=== PATIENT | male | born 1965 | race American Indian/Alaskan Native ===

== ENCOUNTER 2017-05-10 15:08 | Inpatient (IN) | payer BC, OTHER ==
--- NOTE | 2017-05-10 15:41 | ED PDOC ---
Arrival/HPI - General Chief Complaint: Lower Extremity Problem/Injury Time Seen by Provider: 05/10/17 15:33 Historian: Patient - History of Present Illness Narrative History of Present Illness (Text): 05/10/17 15:40 A 51 year old male, whose past medical history includes gout and hypertension, presents to the emergency department complaining of left foot pain. Patient notes radiating pain up his left leg. He reports a history of gout but states his current pain feels different. Patient notes taking his prescriptions of allopurinol, colchicine and celebrex, with no relief. Patient notes non-bloody diarrhea but denies any trauma, fever, chills, nausea, vomiting, abdominal pain , chest pain, shortness of breath or any other complaints. PMD: Dr. Gerber Time/Duration: Other Symptom Course: Unchanged Quality: Other Context: Home, Work Past Medical History - Provider Review Nursing Documentation Reviewed: Yes - Cardiac Hx Cardiac Disorders: Yes Hx Hypertension: Yes - Pulmonary Hx Respiratory Disorders: No - Neurological Hx Neurological Disorder: No - HEENT Hx HEENT Disorder: No - Renal Hx Renal Disorder: No - Endocrine/Metabolic Hx Endocrine Disorders: No - Hematological/Oncological Hx Blood Disorders: No - Integumentary Hx Dermatological Disorder: No - Musculoskeletal/Rheumatological Hx Musculoskeletal Disorders: Yes Hx Gout: Yes - Gastrointestinal Hx Gastrointestinal Disorders: No - Genitourinary/Gynecological Hx Genitourinary Disorders: No - Psychiatric Hx Psychophysiologic Disorder: No Hx Substance Use: No - Suicidal Assessment Feels Threatened In Home Enviroment: No Family/Social History - Physician Review Nursing Documentation Reviewed: Yes Family/Social History: No Known Family HX Smoking Status: Never Smoked Hx Alcohol Use: Yes (socially) Hx Substance Use: No Hx Substance Use Treatment: No Allergies/Home Meds Allergies/Adverse Reactions: Allergies No Known Allergies Allergy (Verified 05/10/17 15:20) Home Medications: Home Meds Medication Instructions Recorded Confirmed Allopurinol 100 mg PO DAILY 04/06/12 05/10/17 Celecoxib [Celebrex] 1 tab PO PRN PRN 05/10/17 Colchicine [Colcrys] 1 tab PO PRN PRN 05/10/17 05/10/17 Review of Systems - Physician Review All systems were reviewed & negative as marked: Yes - Review of Systems Constitutional: absent: Fevers, Night Sweats Respiratory: absent: SOB Cardiovascular: absent: Chest Pain Gastrointestinal: Diarrhea. absent: Abdominal Pain, Nausea, Vomiting Musculoskeletal: Other (Left foot pain, radiating up towards left leg) Physical Exam Vital Signs Reviewed: Yes Vital Signs Temp Pulse Resp BP Pulse Ox 05/10/17 15:22 98.9 F 98 H 17 153/94 H 95 Temperature: Afebrile Blood Pressure: Hypertensive Pulse: Tachycardic Respiratory Rate: Normal Appearance: Positive for: Well-Appearing, Non-Toxic, Comfortable Pain Distress: None Mental Status: Positive for: Alert and Oriented X 3 - Systems Exam Head: Present: Atraumatic, Normocephalic Pupils: Present: PERRL Extroacular Muscles: Present: EOMI Conjunctiva: Present: Normal Lower Extremity: Present: NORMAL PULSES, Normal ROM, Tenderness (to dorsal aspect of left foot. Minimal ankle tenderness.), Neurovascularly Intact, Other ( No tenderness to MTP joint). No: Edema, CALF TENDERNESS, Swelling, Erythema, Deformity, Temperature Abnormalties Neurological: Present: GCS=15, CN II-XII Intact, Speech Normal Skin: Present: Warm, Dry, Normal Color. No: Rashes Psychiatric: Present: Alert, Oriented x 3, Normal Insight, Normal Concentration Medical Decision Making ED Course and Treatment: 05/10/17 15:40 Impression: A 51 year old male with left foot pain. Patient notes diarrhea. Plan: -- Left foot xray -- Labs -- Toradol -- Reassess and disposition Progress Notes: - Lab Interpretations Lab Results: 05/10/17 16:10 05/10/17 16:10 Lab Results 05/10/17 16:10: Sodium 141, Potassium 4.1, Chloride 97 L, Carbon Dioxide 24, Anion Gap 24 H, BUN 6 L, Creatinine 0.8, Est GFR ( Amer) > 60, Est GFR ( Non-Af Amer) > 60, Random Glucose 83, Uric Acid 7.4, Calcium 9.3, Total Bilirubin 2.2 H, AST 66 H, ALT 63 H, Alkaline Phosphatase 85, Total Protein 8.1 , Albumin 4.4, Globulin 3.7, Albumin/Globulin Ratio 1.2 05/10/17 16:10: WBC 9.3, RBC 4.21, Hgb 12.7 L, Hct 38.5 L, MCV 91.4, MCH 30.2, MCHC 33.0, RDW 14.3, Plt Count 197, MPV 8.8, Gran % 73.5 H, Lymph % (Auto) 20.3 L, [place] % (Auto) 5.5, Eos % (Auto) 0.5 L, Baso % (Auto) 0.2, Gran # 6.83 H, Lymph # 1.9, [place] # 0.5, Eos # 0.1, Baso # 0.02, ESR Pending I have reviewed the lab results: Yes - RAD Interpretation Radiology Orders: 05/10/17 15:40 FOOT LEFT 3 VIEWS ROUTINE [RAD] Stat - Medication Orders Current Medication Orders: Discontinued Medications Ketorolac Tromethamine (Toradol) 60 mg IM STAT STA Stop: 05/10/17 15:42 Last Admin: 05/10/17 16:06 Dose: 60 mg MAR Pain Assessment Document 05/10/17 16:06 EQ (Rec: 05/10/17 16:06 EQ [id number]) Pain Reassessment Is this a pain reassessment? No Sleep Is patient sleeping during reassessment? No Presence of Pain Presence of Pain Yes IM Administration Charges Document 05/10/17 16:06 EQ (Rec: 05/10/17 16:06 EQ [id number]) Charges for Administration # of IM Administrations 1 - Scribe Statement The provider has reviewed the documentation as recorded by the Sosa Araujo Provider Scribe Attestation: All medical record entries made by the Scribe were at my direction and personally dictated by me. I have reviewed the chart and agree that the record accurately reflects my personal performance of the history, physical exam, medical decision making, and the department course for this patient. I have also personally directed, reviewed, and agree with the discharge instructions and disposition. Disposition/Present on Arrival - Present on Arrival Any Indicators Present on Arrival: No History of DVT/PE: No History of Uncontrolled Diabetes: No Urinary Catheter: No History of Decub. Ulcer: No History Surgical Site Infection Following: None - Disposition Have Diagnosis and Disposition been Completed?: Yes Diagnosis: Gout of left foot Disposition: HOSPITALIZED Disposition Time: 17:10 Patient Plan: Admission Condition: FAIR Forms: [employer] ([place])
[2017-05-10 16:33] LABS: BASO # 0.02 K/mm3 (0.0-2.0); BASO % 0.2 % (0.0-3.0); EOS # 0.1 (0.0-0.7); EOS % 0.5 % (1.5-5.0); GRAN # 6.83 (1.4-6.5); GRAN % 73.5 % (50.0-68.0); HEMOGLOBIN 12.7 g/dL (14.0-18.0); LYMPH # 1.9 (1.2-3.4); LYMPH % 20.3 % (22.0-35.0); MEAN CELL VOLUME 91.4 fl (80.0-105.0); MEAN CORPUSCULAR HEMOGLOBIN 30.2 pg (25.0-35.0); MEAN PLATELET VOLUME 8.8 fl (7.0-11.0); MONO # 0.5 (0.1-0.6); MONO % 5.5 % (1.0-6.0); RBC 4.21 10^6/uL (3.5-6.1); RED CELL DISTRIBUTION WIDTH 14.3 % (11.5-14.5); WHITE BLOOD COUNT 9.3 10^3/ul (4.5-11.0)
[2017-05-10 16:39] LABS: ALB/GLOB RATIO 1.2 (1.1-1.8); ALBUMIN 4.4 g/dL (3.0-4.8); ALT/SGPT 63 U/L (7-56); AST/SGOT 66 U/L (17-59); BLOOD UREA NITROGEN 6 mg/dL (7-21); CALCIUM 9.3 mg/dL (8.4-10.5); GFR AFRICAN-AMERICAN > 60; GFR NON-AFRICAN AMERICAN > 60; URIC ACID 7.4 mg/dL (3.5-8.5)
--- NOTE | 2017-05-10 18:00 | RAD ---
PROCEDURE: Left Foot Radiographs. HISTORY: metatarsal pain COMPARISON: None. FINDINGS: BONES: No fractures identified or destructive bony lesion. JOINTS: Marked degenerative joint disease seen comprised of joint space narrowing and cortical sclerosis as well as limited osteophyte development throughout the joints of the left foot the predominantly at the hindfoot and digital joints as well as the 1st metatarsophalangeal joint. Borderline hallux valgus deformity. SOFT TISSUES: A large plantar calcaneal spur is appreciated. OTHER FINDINGS: None. IMPRESSION: No acute fracture or dislocation. Degenerative changes seen diffusely for predominantly affect the forefoot and hindfoot joints as per above. Large plantar calcaneal spur identified.
[2017-05-10] MEDS ORDERED: Oxycodone/Acetaminophen 5/325 mg Tab PO PRN (19:59)
[2017-05-10] MEDS: MethylPREDNISolone 40 mg Vial IV SCH (21:29)
[2017-05-10 22:43] VITALS: BMI 50.2
[2017-05-10] MEDS ORDERED: Influenza Vaccine 60 mcg/0.5 mL SYR (4YR UP) IM ONE (22:43)
[2017-05-10] MEDS ORDERED: Pneumococcal 23-Valent Vaccine IM ONE (22:43)
--- NOTE | 2017-05-11 01:20 | HP ---
HISTORY OF PRESENT ILLNESS: The patient is 51 years old, came to the emergency room because of increasing pain, swelling, and redness of left foot. The patient states that he is unable to walk. He cannot even walk few steps. He has been taking colchicine and allopurinol at home. He also has Celebrex at home, but states that it was not helping him. Because of above-mentioned complaint, he came to emergency room for further evaluation. He denies any fever or chills, complains of persistent pain, also complains of some diarrhea since he started taking more colchicine. PAST MEDICAL HISTORY: He has significant past medical history for: 1. Hypertension. 2. Morbid obesity. 3. Sleep apnea. 4. Hyperlipidemia. 5. Gout. ALLERGIES: HE IS NOT ALLERGIC TO ANY MEDICATIONS. MEDICATIONS AT HOME: He is on Diovan 320 mg daily, allopurinol 100 mg daily, and Celebrex 200 daily. SOCIAL HISTORY: He is single. He denies smoking, but does drink. PHYSICAL EXAMINATION: GENERAL: He is awake, alert, oriented, and able to communicate. VITAL SIGNS: He is afebrile, pulse 85, respirations 16, and blood pressure 145/90. LUNGS: Bilateral fair airflow. No rhonchi or crackle. HEART: S1 and S2 audible. ABDOMEN: Soft and nontender. No rebound. Obese. No hepatosplenomegaly. NEUROLOGIC: The patient is awake, alert, oriented, and able to communicate. LABORATORY DATA: WBC is 9.3, hemoglobin 12.7, hematocrit 38.5, and platelet 197,000. Chemistry: Sodium 141, potassium 4.1, chloride 97, CO2 24, BUN 6, creatinine 0.8, and blood sugar of 83. LFTs are within normal limits. Total bilirubin 2.2. AST 66, ALT 63. ASSESSMENT: 1. Left foot gouty arthritis, intractable pain. 2. Hypertension. 3. Hyperlipemia. PLAN: The patient will be admitted. We will give him IV steroids, start him on colchicine, gave him analgesic, and we will reevaluate this patient. Cheyanne Gerber MD
[2017-05-11] MEDS: MethylPREDNISolone 40 mg Vial IV SCH ×3 (05:38→22:25)
[2017-05-11] MEDS: Pantoprazole 40 mg EC Tab PO SCH (05:39)
[2017-05-11 17:48] VITALS: RESP 20
--- NOTE | 2017-05-11 20:48 | PN ---
DATE: SUBJECTIVE: The patient is a 51-year-old, who was admitted with foot swelling, redness, and difficulty walking, seen and examined, doing better. PHYSICAL EXAMINATION VITAL SIGNS: He is afebrile, pulse 70, respirations 20 and blood pressure 129/72. LUNGS: Bilateral good airflow. No rhonchi or crackle. HEART: S1 and S2 audible. ABDOMEN: Soft and nontender. No rebound. No guarding. NEUROLOGIC: The patient is awake, alert, oriented. Able to communicate and ambulatory. His erythema has significantly improved. ASSESSMENT AND PLAN: 1. Acute gouty arthritis with foot erythema. 2. Hypertension. 3. Morbid obesity. 4. Hyperlipidemia. PLAN: I will cut down colchicine to b.i.d. Continue on valsartan. He is on Lasix 40 mg IV. We will continue that. Cut down his prednisone to 30 mg q. 12. We will reevaluate in a.m. If he remain stable, we will switch to p.o. medication and discharge him in a.m. Cheyanne Gerber MD
[2017-05-12 08:01] VITALS: PULSE 80; TEMP 98.6; O2SAT 97
[2017-05-12] MEDS: Pantoprazole 40 mg EC Tab PO SCH (08:09)
[2017-05-12] MEDS: MethylPREDNISolone 40 mg Vial IV SCH (10:00)
[2017-05-12 10:06] VITALS: BP 130/82
--- NOTE | 2017-05-13 01:06 | DS ---
HISTORY OF PRESENT ILLNESS: The patient is a 51-year-old, seen and examined, and doing well. Left foot swelling has almost gone, able to ambulate. PHYSICAL EXAMINATION: VITAL SIGNS: He is afebrile, pulse 80, respirations 20, and blood pressure 130/82. LUNGS: Bilateral fair airflow. No rhonchi or crackle. HEART: S1 and S2 audible. ABDOMEN: Soft, obese, and nontender. No rebound. No guarding. EXTREMITIES: No leg edema. Left foot erythema has improved. NEUROLOGIC: The patient is awake, alert, oriented, and able to communicate. ASSESSMENT: 1. Disabling gouty arthritis, the patient responded very well to IV steroid, colchicine, analgesic, and nonsteroidal antiinflammatory drugs. 2. Hypertension. 3. Morbid obesity. 4. Hyperlipidemia. PLAN: The patient is going to be discharged home on colchicine twice a day for 3 days and daily until 2 to 3 weeks, continue allopurinol, Celebrex 200 daily for a week, and the patient will follow up in office in a week or two. Cheyanne Gerber MD
== END 2017-05-12 12:42 | disposition home or self-care (01) | DRG 554 ==
LOC: ED 15:08 → OBSVTOIN 17:02 → INTOOBSV 17:02 → ERH 17:02 → 5RSO 18:44
PROVIDERS: ADMIT Internal Medicine; ATTEND Internal Medicine
DX: M10.072 Idiopathic gout, left ankle and foot (principal); E66.01 Morbid (severe) obesity due to excess calories; Z68.43 Body mass index [BMI] 50.0-59.9, adult; I10 Essential (primary) hypertension; E78.5 Hyperlipidemia, unspecified; G47.30 Sleep apnea, unspecified

== ENCOUNTER 2017-05-29 13:28 | Emergency (ER) | payer BC ==
[2017-05-29 14:42] VITALS: BMI 51.7
[2017-05-29 14:46] VITALS: RESP 18
--- NOTE | 2017-05-29 15:25 | ED PDOC ---
Arrival/HPI - General Chief Complaint: Lower Extremity Problem/Injury Time Seen by Provider: 05/29/17 14:54 Historian: Patient - History of Present Illness Narrative History of Present Illness (Text): 05/29/17 15:20 51yo morbidly obese male with PMHx of hypertension and gout present with pain to his right ankle/foot x 2days. Patient states pain is typical of his gouty attacks pain. States pain started after he was exposed to cold at work yesterday. Notes that he started took Allopurinol and colchicine yesterday and today. Describes pain as throbbing. Denies trauma ,fever, chills, swelling, calf pain, redness, chest pain, SOB, diaphoresis, any other complaint. Past Medical History - Provider Review Nursing Documentation Reviewed: Yes - Infectious Disease Hx of Infectious Diseases: None - Cardiac Hx Cardiac Disorders: Yes Hx Hypertension: Yes - Pulmonary Hx Respiratory Disorders: No - Neurological Hx Neurological Disorder: No - HEENT Hx HEENT Disorder: No - Renal Hx Renal Disorder: No - Endocrine/Metabolic Hx Endocrine Disorders: No - Hematological/Oncological Hx Blood Disorders: No - Integumentary Hx Dermatological Disorder: No - Musculoskeletal/Rheumatological Hx Musculoskeletal Disorders: Yes Hx Falls: No Hx Gout: Yes - Gastrointestinal Hx Gastrointestinal Disorders: No - Genitourinary/Gynecological Hx Genitourinary Disorders: No - Psychiatric Hx Psychophysiologic Disorder: No Hx Substance Use: No - Anesthesia Hx Anesthesia: No - Suicidal Assessment Feels Threatened In Home Enviroment: No Family/Social History - Physician Review Nursing Documentation Reviewed: Yes Family/Social History: Unknown Family HX Smoking Status: Never Smoked Hx Alcohol Use: Yes (ETOH SOCIALLY) Hx Substance Use: No Hx Substance Use Treatment: No Allergies/Home Meds Allergies/Adverse Reactions: Allergies No Known Allergies Allergy (Verified 05/10/17 20:26) Home Medications: Home Meds Medication Instructions Recorded Confirmed Allopurinol [Zyloprim] 100 mg PO DAILY 05/10/17 05/29/17 Celecoxib [Celebrex] 1 tab PO PRN PRN 05/10/17 05/29/17 Colchicine [Colcrys] 1 tab PO PRN PRN 05/10/17 05/29/17 Valsartan [Diovan] 1 tab PO DAILY 05/29/17 05/29/17 Review of Systems - Physician Review All systems were reviewed & negative as marked: Yes - Review of Systems Constitutional: Normal Eyes: Normal ENT: Normal Respiratory: Normal Cardiovascular: Normal Gastrointestinal: Normal Genitourinary Male: Normal Musculoskeletal: Arthralgias (Right ankle pain) Skin: Normal Neurological: Normal Endocrine: Normal Hemo/Lymphatic: Normal Psychiatric: Normal Physical Exam Vital Signs Reviewed: Yes Vital Signs Temp Pulse Resp BP Pulse Ox 05/29/17 17:40 98 F 80 18 119/77 98 05/29/17 14:45 97.8 F 86 18 121/80 95 Temperature: Afebrile Blood Pressure: Normal Pulse: Regular Respiratory Rate: Normal Appearance: Positive for: Well-Appearing, Non-Toxic, Comfortable Pain Distress: None Mental Status: Positive for: Alert and Oriented X 3 - Systems Exam Head: Present: Atraumatic, Normocephalic Pupils: Present: PERRL Extroacular Muscles: Present: EOMI Conjunctiva: Present: Normal Mouth: Present: Moist Mucous Membranes Neck: Present: Normal Range of Motion Respiratory/Chest: Present: Clear to Auscultation, Good Air Exchange. No: Respiratory Distress, Accessory Muscle Use Cardiovascular: Present: Regular Rate and Rhythm, Normal S1, S2. No: Murmurs Abdomen: Present: Normal Bowel Sounds. No: Tenderness, Distention, Peritoneal Signs Back: Present: Normal Inspection Upper Extremity: Present: Normal Inspection. No: Cyanosis, Edema Lower Extremity: Present: NORMAL PULSES, Tenderness (Right diffuse ankle), Neurovascularly Intact. No: Edema, CALF TENDERNESS, Swelling, Erythema Neurological: Present: GCS=15, CN II-XII Intact, Speech Normal Skin: Present: Warm, Dry, Normal Color. No: Rashes Psychiatric: Present: Alert, Oriented x 3, Normal Insight, Normal Concentration Medical Decision Making ED Course and Treatment: 05/30/17 02:21 PT presented for stated history. He was treated with Toradol and Decadron in ED. On re evaluation he notes that his pain improved. He states he ran out of his medications and was DC home with Colchicine, Percocet and allopurinol. He was referred to his PMD. - Medication Orders Current Medication Orders: Discontinued Medications Dexamethasone (Decadron Inj) 10 mg IVP STAT STA Stop: 05/29/17 15:11 Last Admin: 05/29/17 16:14 Dose: 10 mg IVP Administration Document 05/29/17 16:14 VINEET (Rec: 05/29/17 16:15 [email or web address]) Charges for Administration # of IVP Administrations 1 Ketorolac Tromethamine (Toradol) 30 mg IVP STAT STA Stop: 05/29/17 15:11 Last Admin: 05/29/17 16:14 Dose: 30 mg MAR Pain Assessment Document 05/29/17 16:14 SZA (Rec: 05/29/17 16:14 [email or web address]) Pain Reassessment Is this a pain reassessment? No Sleep Is patient sleeping during reassessment? No Presence of Pain Presence of Pain Yes IVP Administration Document 05/29/17 16:14 VINEET (Rec: 05/29/17 16:14 [email or web address]) Charges for Administration # of IVP Administrations 1 Re-Assess: MAR Pain Assessment Document 05/29/17 17:14 VINEET (Rec: 05/29/17 18:35 [facility] [id number]) Pain Reassessment Is this a pain reassessment? Yes Sleep Is patient sleeping during reassessment? No Presence of Pain Presence of Pain Yes Pain Scale Used Pain Scale Used Numeric Description Intensity of Pain at present 2 Disposition/Present on Arrival - Present on Arrival Any Indicators Present on Arrival: No History of DVT/PE: No History of Uncontrolled Diabetes: No Urinary Catheter: No History of Decub. Ulcer: No History Surgical Site Infection Following: None - Disposition Have Diagnosis and Disposition been Completed?: Yes Diagnosis: Gout of right foot Disposition: HOME/ ROUTINE Disposition Time: 17:50 Patient Plan: Discharge Condition: STABLE Discharge Instructions (ExitCare): Gout (ED) Additional Instructions: Follow up with your Doctor/Social Work Administrator Return to ED for any new or worsening symptoms Prescriptions: Allopurinol [Zyloprim] 100 mg PO DAILY #15 tab Colchicine [Colcrys] 0.6 mg PO BID #6 tab oxyCODONE/Acetaminophen [Percocet 5/325 mg Tab] 1 ea PO Q6 #9 tab Referrals: Cheyanne Gerber MD [Primary Care Provider] - Follow up with primary Yessy Etienne DPM [Staff Provider] - Follow up with primary Forms: [employer] (Wol[employer])
[2017-05-29 18:33] VITALS: BP 119/77; PULSE 80; TEMP 98; O2SAT 98
== END 2017-05-29 18:36 | disposition home or self-care (01) ==
LOC: ED 13:28
DX: M10.9 Gout, unspecified (principal)
CPT/HCPCS: 96374; 96375; 99283; J1100; J1885